=== PATIENT | female | born 1960 | race Caucasian/White ===

== ENCOUNTER 2020-10-11 07:06 | Emergency (ER) | payer BC, OTHER ==
[2020-10-11] MEDS ORDERED: LISI1TAB29 (07:26)
[2020-10-11] MEDS ORDERED: ATOR10TA66 (07:26)
[2020-10-11] MEDS ORDERED: RX-ALBUTEROL INHALER (VENTOLIN HFA) 18 GM IH ONE (07:29)
[2020-10-11] MEDS ORDERED: RX-ALBUTEROL INHALER (VENTOLIN HFA) 18 GM IH STA (07:36)
--- NOTE | 2020-10-11 07:45 | ED Cough/URI ---
General Chief Complaint: Respiratory Problems Stated Complaint: SOB Nursing Triage Note: has been sick for 12 days with cough, sore throat, and sob. Was tested and was negative for covid Was prescribed steroids and inhaler. Sore throat is better, but Is having increasing shortness of breath and came to ED for eval. Sepsis Screen: No Definite Risk Source: patient Exam Limitations: no limitations History of Present Illness Date Seen by Provider: Oct 11, 2020 Time Seen by Provider: 07:16 Initial Comments Here with report of being sick for the last 12 days with cough, sore throat and shortness of air. Was tested at onset for COVID-19 and that was found to be negative. Denies fevers or chills throughout this and has had no fever for the last 3 days. Denies chest pain. Denies nausea, vomiting or diarrhea. Did receive 5 days of steroids and has been using her albuterol inhaler. Neither resolved her symptoms. Presents today for continuing concerns. Denies contact with COVID-19. She is a smoker but has not smoked much in the last week due to symptoms. She has not been vaccinated for COVID-19. Timing/Duration: constant Severity/Quality: mild, moderate, severe Prior Episodes/Possible Cause: occasional episodes Modifying Factors: Worse With Activity; Improves With Albuterol Inhaler Associated Symptoms: cough, nasal congestion, shortness of breath, sore throat, wheezing Allergies and Home Medications Allergies Coded Allergies: No Known Drug Allergies (Unverified , 10/11/20) Patient Home Medication List Home Medication List Reviewed: Yes Review of Systems Review of Systems Constitutional: No chills, No fever EENTM: see HPI Respiratory: see HPI Cardiovascular: No chest pain, No edema Gastrointestinal: see HPI Genitourinary: no symptoms reported Musculoskeletal: no symptoms reported All Other Systems Reviewed Negative Unless Noted: Yes Past Cfwuvtc-Sdxzwx-Kgofpk Hx Past Med/Social Hx: Reviewed Nursing Past Med/Soc Hx Patient Social History Alcohol Use: Denies Use Smoking Status: Current Everyday Smoker Type Used: Cigarettes 2nd Hand Smoke Exposure: Yes Recent Infectious Disease Expo: No Recent Hopitalizations: No Past Medical History Surgeries: Yes (dental) Tubal Ligation Respiratory: No Cardiac: Yes High Cholesterol, Hypertension Neurological: No Genitourinary: No Gastrointestinal: No Musculoskeletal: No Endocrine: No HEENT: No Cancer: No Psychosocial: No Integumentary: No Blood Disorders: No Family Medical History Reviewed Nursing Family Hx Physical Exam Vital Signs - First Documented 10/11/20 07:17 Temp 36.4 Pulse 92 Resp 20 B/P (MAP) 160/89 (112) Pulse Ox 96 Capillary Refill : Less Than 3 Seconds Height: '" Weight: lbs. oz. kg; BMI Method: General Appearance: WD/WN, no apparent distress HEENT: PERRL/EOMI, pharynx normal Neck: full range of motion, supple Respiratory: no accessory muscle use, other (Coarse sounds with cough) Cardiovascular: regular rate, rhythm, no murmur Gastrointestinal: non tender, soft Extremities: non-tender, normal inspection, no pedal edema, no calf tenderness Neurologic/Psychiatric: alert, oriented x 3 Skin: normal color, warm/dry Progress/Results/Core Measures Suspected Sepsis Recent Fever Within 48 Hours: No Infection Criteria Present: Documented Infection New/Unexplained Altered Menta: No Sepsis Screen: No Definite Risk SIRS Temperature: Pulse: 92 Respiratory Rate: 20 Laboratory Tests 10/11/20 07:37: White Blood Count 9.5 Blood Pressure 160 /89 Mean: 112 Laboratory Tests 10/11/20 07:37: Creatinine 1.00, Platelet Count 312, Total Bilirubin 0.7 Results/Orders Lab Results Laboratory Tests Test 10/11/20 07:37 Range/Units White Blood Count 9.5 4.3-11.0 10^3/uL Red Blood Count 5.89 H 4.35-5.85 10^6/uL Hemoglobin 16.9 H 11.5-16.0 G/DL Hematocrit 51 35-52 % Mean Corpuscular Volume 86 80-99 FL Mean Corpuscular Hemoglobin 29 25-34 PG Mean Corpuscular Hemoglobin Concent 33 32-36 G/DL Red Cell Distribution Width 13.0 10.0-14.5 % Platelet Count 312 130-400 10^3/uL Mean Platelet Volume 8.7 7.4-10.4 FL Immature Granulocyte % (Auto) 1 % Neutrophils (%) (Auto) 68 42-75 % Lymphocytes (%) (Auto) 24 12-44 % Monocytes (%) (Auto) 6 0-12 % Eosinophils (%) (Auto) 1 0-10 % Basophils (%) (Auto) 0 0-10 % Neutrophils # (Auto) 6.4 1.8-7.8 X 10^3 Lymphocytes # (Auto) 2.3 1.0-4.0 X 10^3 Monocytes # (Auto) 0.6 0.0-1.0 X 10^3 Eosinophils # (Auto) 0.1 0.0-0.3 10^3/uL Basophils # (Auto) 0.0 0.0-0.1 10^3/uL Immature Granulocyte # (Auto) 0.1 0.0-0.1 10^3/uL D-Dimer 0.57 H 0.00-0.49 UG/ML Sodium Level 144 135-145 MMOL/L Potassium Level 4.2 3.6-5.0 MMOL/L Chloride Level 106 98-107 MMOL/L Carbon Dioxide Level 28 21-32 MMOL/L Anion Gap 10 5-14 MMOL/L Blood Urea Nitrogen 28 H 7-18 MG/DL Creatinine 1.00 0.60-1.30 MG/DL Estimat Glomerular Filtration Rate 57 BUN/Creatinine Ratio 28 Glucose Level 106 H 70-105 MG/DL Calcium Level 9.5 8.5-10.1 MG/DL Corrected Calcium 9.3 8.5-10.1 MG/DL Total Bilirubin 0.7 0.1-1.0 MG/DL Aspartate Amino Transf (AST/SGOT) 17 5-34 U/L Alanine Aminotransferase (ALT/SGPT) 19 0-55 U/L Alkaline Phosphatase 56 40-136 U/L C-Reactive Protein 0.78 H <0.50 MG/DL Total Protein 7.3 6.4-8.2 GM/DL Albumin 4.3 3.2-4.5 GM/DL My Orders Orders - HANDY VILLAREAL MD Rx-Albuterol Inhaler (Rx-Ventolin Hfa) (10/11/20 07:29) Cbc With Automated Diff (10/11/20 07:36) Comprehensive Metabolic Panel (10/11/20 07:36) Fibrin Degradation Products (10/11/20 07:36) Crp Fs (10/11/20 07:36) Ed Iv/Invasive Line Start (10/11/20 07:36) Chest 1 View Ap/Pa Only (10/11/20 07:36) Rx-Albuterol Inhaler (Rx-Ventolin Hfa) (10/11/20 07:36) Vital Signs/I&O 10/11/20 07:17 Temp 36.4 Pulse 92 Resp 20 B/P (MAP) 160/89 (112) Pulse Ox 96 Capillary Refill : Less Than 3 Seconds 2 Blood Pressure Mean: 112 Progress Note : Progress Note Seen and evaluated. Patient is neither tachycardic nor hypoxic. Patient reports negative Covid test onset. She is 12 days into illness so this is un likely to be Covid but we will continue precautions while evaluating. We will get chest x-ray and basic labs including CRP and D-dimer. Albuterol MDI 4 puffs via spacer given. Monitor patient. 0838: Chest x-ray negative. Labs reviewed and do not show any significant abnormalities. No indications of severe viral or bacterial disease including Covid based on laboratory studies. She is better after her albuterol therapy. We will reinitiate steroids and also initiate azithromycin 5-day pack to cover for atypicals. Patient agreed with that plan. Discharged home with return precautions. Patient verbalized understanding of instructions and agreement with plan. Diagnostic Imaging Diagonstic Imaging: Xray Plain Films/CT/US/NM/MRI: chest Comments NAME: HERMANN TATUM [facility] REC#: [id number] PT STATUS: REG ER : 1960 PHYSICIAN: HANDY VILLAREAL MD ADMIT DATE: 10/11/20/ER FS Draft Date of Exam:10/11/20 CHEST 1 VIEW AP/PA ONLY INDICATION: Cough COMPARISON: None available TECHNIQUE: Single radiograph of the chest dated 10/11/2020 FINDINGS: The cardiac silhouette is within normal limits in size. No significant pulmonary vascular congestion. The lungs are clear. No pleural effusion. No pneumothorax. No acute osseous abnormality. IMPRESSION: No acute cardiopulmonary abnormality. Dictated on workstation # [id number] Dict: 10/11/20 0758 Trans: 10/11/20 0803 TED [id number] Interpreted by: CLEMENTINE HAMILTON MD Electronically signed by: Departure Impression Primary Impression: Acute bronchitis Qualified Codes: J20.9 - Acute bronchitis, unspecified Disposition: 01 HOME, SELF-CARE Condition: Improved Departure-Patient Inst. Decision time for Depature: 08:40 Referrals: ZEUS MANDEL MD (PCP/Family) Primary Care Physician Patient Instructions: Acute Bronchitis, Adult (DC) Add. Discharge Instructions: All discharge instructions reviewed with patient and/or family. Voiced understanding. Take medications as directed. Use albuterol inhaler 2 puffs every 4 hours as needed for wheezing or shortness of breath. Follow-up with your doctor in a few days for recheck. Return for worse pain, fever, vomiting, weakness, breathing problems or other concerns as needed. Scripts Prednisone (Prednisone) 20 Mg Tab 40 MG PO DAILY, #10 TAB 0 Refills Prov: HANDY VILLAREAL MD 10/11/20 Azithromycin (Azithromycin) 250 Mg Tablet 250 MG PO UD, #6 TAB TAKE 2 TABLETS ON DAY ONE THEN TAKE 1 TABLET DAILY FOR FOUR MORE DAYS Prov: HANDY VILLAREAL MD 10/11/20 HANDY VILLAREAL MD Oct 11, 2020 07:45
[2020-10-11 07:51] LABS: HEMATOCRIT 51 % (35-52); HEMOGLOBIN 16.9 G/DL (11.5-16.0); MEAN CORPUSCULAR HEMOGLOBIN 29 PG (25-34); MEAN CORPUSCULAR HGB CONC 33 G/DL (32-36); MEAN CORPUSCULAR VOLUME 86 FL (80-99); WHITE BLOOD COUNT 9.5 10^3/uL (4.3-11.0)
[2020-10-11 07:52] LABS: BASOPHILS % (AUTO) 0 % (0-10); EOSINOPHILS % (AUTO) 1 % (0-10); LYMPHOCYTES % (AUTO) 24 % (12-44); MEAN PLATELET VOLUME 8.7 FL (7.4-10.4); MONOCYTES % (AUTO) 6 % (0-12); NEUTROPHILS % (AUTO) 68 % (42-75); PLATELET COUNT 312 10^3/uL (130-400)
[2020-10-11 07:53] LABS: EOSINOPHILS # (AUTO) 0.1 10^3/uL (0.0-0.3); LYMPHOCYTES # (AUTO) 2.3 X 10^3 (1.0-4.0); MONOCYTES # (AUTO) 0.6 X 10^3 (0.0-1.0); NEUTROPHILS # (AUTO) 6.4 X 10^3 (1.8-7.8)
--- NOTE | 2020-10-11 08:04 | Diagnostic Imaging Report ---
INDICATION: Cough COMPARISON: None available TECHNIQUE: Single radiograph of the chest dated 10/11/2020 FINDINGS: The cardiac silhouette is within normal limits in size. No significant pulmonary vascular congestion. The lungs are clear. No pleural effusion. No pneumothorax. No acute osseous abnormality. IMPRESSION: No acute cardiopulmonary abnormality. Dictated by: Dictated on workstation # [id number]
[2020-10-11 08:06] LABS: BILIRUBIN,TOTAL 0.7 MG/DL (0.1-1.0); CALCIUM 9.5 MG/DL (8.5-10.1); POTASSIUM 4.2 MMOL/L (3.6-5.0)
[2020-10-11 08:07] LABS: ALBUMIN 4.3 GM/DL (3.2-4.5); TOTAL PROTEIN 7.3 GM/DL (6.4-8.2)
[2020-10-11] MEDS ORDERED: PRD20T PO (08:41)
[2020-10-11] MEDS ORDERED: AZIT250T12 PO (08:41)
[2020-10-11 08:58] VITALS: BP 128/88
== END 2020-10-11 08:58 | disposition home or self-care (01) ==
LOC: ER FS 07:09
DX: J20.9 Acute bronchitis, unspecified (principal); I10 Essential (primary) hypertension; F17.210 Nicotine dependence, cigarettes, uncomplicated
CPT/HCPCS: 36415; 71045; 80053; 85025; 85379; 86141